=== PATIENT | male | born 1960 | race Caucasian/White ===

== ENCOUNTER 2017-02-12 14:44 | Inpatient (IN) | payer SELFPAY ==
--- NOTE | 2017-02-12 15:07 | EDPHY ---
H & P Stated Complaint: SOB, cough for 2 weeks, concerned about liver. Time Seen by Provider: 02/12/17 15:06 HPI/ROS: HPI: This is a 57-year-old male presents with Chief Complaint: SOB, cough for 2 weeks, concerned about liver. Location: Chest Quality: Cough Duration: 2 weeks Signs and Symptoms: Timing: Worsening Severity: Moderate Context: Patient reports that he drinks [place] daily and also has a clotting disorder in the family and he himself suffers from daily my nose bleeds. His significant other of 20+ years finally made him come to the emergency room today for further evaluation as her daughters felt like his skin was turning yellow in color any has this persistent cough with chest tightness for the last 2 weeks. He does report that he has not experienced chest tightness today. He describes it as " there" but denies any nausea, vomiting, diaphoresis, cardiac awareness, radiation. Reports that he has some red spots on the inside of his gums and gets daily nose bleeds. He attributed this to his family blood clotting disorder but has never seen a physician in 20+ years to have it evaluated. He denies fevers, abdominal pain, body aches, weight loss , blood in stool. Modifying Factors: None Comment: ROS: see HPI Constitutional: No fever, no chills, no weight loss Eyes: No blurred vision Respiratory: No shortness of breath, no cough Cardiovascular: No chest pain Gastrointestinal: No nausea, no vomiting, no diarrhea Genitourinary: No dysuria Extremities: No myalgias Neurologic: No weakness, no numbness Skin: No rashes Hematologic: No bruising, no bleeding MEDICAL/SURGICAL/SOCIAL HISTORY: Medical history: Does not take any regular medications. 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 CONSTITUTIONAL: Adult white male who is pleasant cooperative, nontoxic in appearance, awake and alert, no obvious distress HEENT: Atraumatic and normocephalic, PERRL, EOMI. pale conjunctiva. Tympanic membranes clear. Oropharynx clear, no exudate and moist pink mucosa with petechiae noted. Airway patent. No lymphadenopathy. No meningismus. Cardiovascular: Normal S1/S2, regular rate, regular rhythm, without murmur rub or gallop. PULMONARY/CHEST: Symmetrical and nontender. Clear to auscultation bilaterally. Good air movement. No accessory muscle usage. ABDOMEN: Soft, slightly protuberant, nondistended, nontender, no rebound, no guarding, no peritoneal signs, no masses or organomegaly. No CVAT. RECTAL: Good sphincter tone, light brown stool in vault, no external hemorrhoids , no fissures, no palpable masses EXTREMITIES: 2/2 pulses, strength 5/5, no deformities, no clubbing, no cyanosis or edema. NEUROLOGICAL: no focal neuro deficits. GCS 15. SKIN: Warm and dry, yellowish hue to skin, no erythema. no rash. Good capillary refill. Source: Patient Exam Limitations: No limitations - Personal History Current Tetanus Diphtheria and Acellular Pertussis (TDAP): Unsure - Medical/Surgical History Hx Asthma: No Hx Chronic Respiratory Disease: No Hx Diabetes: No Hx Cardiac Disease: No Hx Renal Disease: No Hx Cirrhosis: No Hx Alcoholism: No Hx HIV/AIDS: No Hx Splenectomy or Spleen Trauma: No Other PMH: Denies. - Social History Smoking Status: Never smoked Constitutional: Initial Vital Signs Temperature (C) 36.6 C 02/12/17 14:46 Heart Rate 96 02/12/17 14:46 Respiratory Rate 18 02/12/17 14:46 Blood Pressure 121/55 H 02/12/17 14:46 O2 Sat (%) 96 02/12/17 14:46 O2 Delivery Mode Room Air Allergies/Adverse Reactions: No Known Allergies Allergy (Unverified 02/12/17 14:50) Home Medications: Medication Instructions Recorded NK [No Known Home Meds] 02/12/17 Medical Decision Making - Diagnostics Imaging Results: Imaging Impressions Abdomen Ultrasound 02/12/17 15:27 Impression: 1. No acute findings in the abdomen. 2. Probable mild fatty infiltration of the liver. 3. Mild splenomegaly. Findings discussed with Geovanna Mak 02/12/2017 at 16:15. Chest X-Ray 02/12/17 15:27 Impression: No acute thoracic abnormality. Procedures: 12 lead EKG: Indication: Normal sinus rhythm rate of 80 beats per minute Rhythm: Normal sinus rhythm [place]: Normal Intervals: Normal QRS: Normal ST segments: nonspecific changes T-waves: nonspecific changes INTERPRETATION: PAC The 12 lead EKG was interpreted by myself and with attending. ED Course/Re-evaluation: 1600: Called by lab is hemoglobin and hematocrit of 4.8/20.1; microcytic type. Type and screen ordered. Transfuse 2 units packed red blood cells stat. VS shows HR 90s and O2 sats 96% on room air Guaiac positive Labs reviewed and show pancytopenia except platelets 498K Chest x-ray my read shows no pneumonia/pneumothorax. Called by radiologist Dr. Britton who advised that abdominal ultrasound shows cirrhosis. EKG and troponin #1; no acute ischemic changes noted. 1630: ED decision to consult for admission, due to microcytic anemia, liver disease, guaiac positive stool. Spoke with hospitalist, Dr. Jim Jurado, who kindly agrees to accept patient provide further care. Differential Diagnosis: Differential diagnosis includes but is not limited to liver disease, thrombocytopenia, community-acquired pneumonia, acute coronary syndrome, pulmonary embolism. - Data Points Laboratory Results: Laboratory Results 02/12/17 15:20 02/12/17 15:20 02/12/17 02/12/17 02/12/17 16:10 16:10 15:57 WBC RBC Hgb Hct MCV MCH MCHC RDW Plt Count MPV Neut % (Auto) Lymph % (Auto) [place] % (Auto) Eos % (Auto) Baso % (Auto) Nucleat RBC Rel Count Absolute Neuts (auto) Absolute Lymphs (auto) Absolute Monos (auto) Absolute Eos (auto) Absolute Basos (auto) Absolute Nucleated RBC Immature Gran % Immature Gran # Platelet Estimate Smear Review By PT INR APTT VBG Lactic Acid Sodium Potassium Chloride Carbon Dioxide Anion Gap BUN Creatinine Estimated GFR Glucose Calcium Total Bilirubin Conjugated Bilirubin Unconjugated Bilirubin AST ALT Alkaline Phosphatase Troponin I NT-Pro-B Natriuret Pep Total Protein Albumin Lipase Urine Color YELLOW Urine Appearance CLEAR Urine pH 5.0 (5.0-7.5) Ur Specific [place] 1.018 (1.002-1.030) Urine Protein NEGATIVE (NEGATIVE) Urine Ketones NEGATIVE (NEGATIVE) Urine Blood NEGATIVE (NEGATIVE) Urine Nitrate NEGATIVE (NEGATIVE) Urine Bilirubin NEGATIVE (NEGATIVE) Urine Urobilinogen NEGATIVE EU EU (0.2-1.0) Ur Leukocyte Esterase NEGATIVE (NEGATIVE) Urine Glucose NEGATIVE (NEGATIVE) Stool Occult Bld Scrn POSITIVE H (NEGATIVE) Patient ABO/Rh Pending Antibody Screen Pending Crossmatch IS Only See Detail 02/12/17 02/12/17 02/12/17 15:50 15:20 15:20 WBC RBC Hgb Hct MCV MCH MCHC RDW Plt Count MPV Neut % (Auto) Lymph % (Auto) [place] % (Auto) Eos % (Auto) Baso % (Auto) Nucleat RBC Rel Count Absolute Neuts (auto) Absolute Lymphs (auto) Absolute Monos (auto) Absolute Eos (auto) Absolute Basos (auto) Absolute Nucleated RBC Immature Gran % Immature Gran # Platelet Estimate Smear Review By PT INR APTT VBG Lactic Acid 1.5 mmol/L mmol/L (0.7-2.1) Sodium 140 mEq/L mEq/L (134-144) Potassium 4.3 mEq/L mEq/L (3.5-5.2) Chloride 107 mEq/L mEq/L (97-110) Carbon Dioxide 20 mEq/l L mEq/l (22-31) Anion Gap 13 mEq/L mEq/L (8-16) BUN 15 mg/dL mg/dL (7-23) Creatinine 0.9 mg/dL mg/dL (0.7-1.3) Estimated GFR > 60 Glucose 92 mg/dL mg/dL (70-100) Calcium 8.8 mg/dL mg/dL (8.5-10.4) Total Bilirubin 0.5 mg/dL mg/dL (0.1-1.4) Conjugated Bilirubin 0.0 mg/dL mg/dL (0.0-0.5) Unconjugated Bilirubin 0.5 mg/dL mg/dL (0.0-1.1) AST 35 IU/L IU/L (17-59) ALT 25 IU/L IU/L (21-72) Alkaline Phosphatase 71 IU/L IU/L (38-126) Troponin I < 0.012 ng/mL ng/mL (0.000-0.034) NT-Pro-B Natriuret Pep 847 pg/mL H pg/mL (0-125) Total Protein 6.3 g/dL g/dL (6.3-8.2) Albumin 3.7 g/dL g/dL (3.5-5.0) Lipase 62 IU/L IU/L (23-300) Urine Color Urine Appearance Urine pH Ur Specific [place] Urine Protein Urine Ketones Urine Blood Urine Nitrate Urine Bilirubin Urine Urobilinogen Ur Leukocyte Esterase Urine Glucose Stool Occult Bld Scrn Patient ABO/Rh Antibody Screen Crossmatch IS Only 02/12/17 02/12/17 15:20 15:20 WBC 5.58 10^3/uL 10^3/uL (3.80-9.50) RBC 3.59 10^6/uL L 10^6/uL (4.40-6.38) Hgb 4.8 g/dL L* g/dL (13.7-17.5) Hct 20.1 % L % (40.0-51.0) MCV 56.0 fL L fL (81.5-99.8) MCH 13.4 pg L pg (27.9-34.1) MCHC 23.9 g/dL L g/dL (32.4-36.7) RDW 22.6 % H % (11.5-15.2) Plt Count 498 10^3/uL H 10^3/uL (150-400) MPV 9.8 fL fL (8.7-11.7) Neut % (Auto) 60.7 % % (39.3-74.2) Lymph % (Auto) 24.2 % % (15.0-45.0) [place] % (Auto) 10.9 % % (4.5-13.0) Eos % (Auto) 2.9 % % (0.6-7.6) Baso % (Auto) 0.9 % % (0.3-1.7) Nucleat RBC Rel Count 1.1 % H % (0.0-0.2) Absolute Neuts (auto) 3.39 10^3/uL 10^3/uL (1.70-6.50) Absolute Lymphs (auto) 1.35 10^3/uL 10^3/uL (1.00-3.00) Absolute Monos (auto) 0.61 10^3/uL 10^3/uL (0.30-0.80) Absolute Eos (auto) 0.16 10^3/uL 10^3/uL (0.03-0.40) Absolute Basos (auto) 0.05 10^3/uL 10^3/uL (0.02-0.10) Absolute Nucleated RBC 0.06 10^3/uL H 10^3/uL (0-0.01) Immature Gran % 0.4 % % (0.0-1.1) Immature Gran # 0.02 10^3/uL 10^3/uL (0.00-0.10) Platelet Estimate Pending Smear Review By Pending PT 14.2 SEC SEC (12.0-15.0) INR 1.11 (0.83-1.16) APTT 32.5 SEC SEC (23.0-38.0) VBG Lactic Acid Sodium Potassium Chloride Carbon Dioxide Anion Gap BUN Creatinine Estimated GFR Glucose Calcium Total Bilirubin Conjugated Bilirubin Unconjugated Bilirubin AST ALT Alkaline Phosphatase Troponin I NT-Pro-B Natriuret Pep Total Protein Albumin Lipase Urine Color Urine Appearance Urine pH Ur Specific [place] Urine Protein Urine Ketones Urine Blood Urine Nitrate Urine Bilirubin Urine Urobilinogen Ur Leukocyte Esterase Urine Glucose Stool Occult Bld Scrn Patient ABO/Rh Antibody Screen Crossmatch IS Only Departure - Departure Disposition: [facility] Acute Clinical Impression: Microcytic anemia, Guaiac positive stools Cirrhosis Qualifiers: Hepatic cirrhosis type: alcoholic cirrhosis Ascites presence: without ascites Qualified Code(s): K70.30 - Alcoholic cirrhosis of liver without ascites
--- NOTE | 2017-02-12 15:28 | CPEKG ---
Heart Rate: 80 RR Interval: 750 P-R Interval: 152 QRSD Interval: 98 QT Interval: 380 QTC Interval: 439 P [place]: 50 QRS [place]: 17 T Wave [place]: 94 EKG Severity - ABNORMAL ECG - EKG Impression: SINUS RHYTHM EKG Impression: MULTIPLE ATRIAL PREMATURE COMPLEXES EKG Impression: BORDERLINE T ABNORMALITIES, LATERAL LEADS Electronically Signed By: Matthew Vasquez 12-Feb-2017 15:33:09
[2017-02-12 15:39] LABS: % IMMATURE GRANULYOCYTES 0.4 % (0.0-1.1); ABSOLUTE IMMATURE GRANULOCYTES 0.02 10^3/uL (0.00-0.10); ABSOLUTE NRBC COUNT 0.06 10^3/uL (0-0.01); ADD DIFF? NO; ADD MORPH? YES; ADD SCAN? NO; ATYPICAL LYMPHOCYTE FLAG 20 (0-99); FRAGMENT RBC FLAG 70 (0-99); HEMATOCRIT 20.1 % (40.0-51.0); LEFT SHIFT FLG 0 (0-99); LIPEMIA HEMOLYSIS FLAG 60 (0-99); MEAN CELL HEMOGLOBIN 13.4 pg (27.9-34.1); MEAN PLATELET VOLUME 9.8 fL (8.7-11.7); PLATELET CLUMPS FLAG 20 (0-99); PLATELET COUNT 498 10^3/uL (150-400); RED BLOOD CELL COUNT 3.59 10^6/uL (4.40-6.38)
[2017-02-12 15:42] LABS: MEAN CELL HEMOGLOBIN CONCENTR. 23.9 g/dL (32.4-36.7); NRBC-AUTO% 1.1 % (0.0-0.2); RED CELL DISTRIBUTION WIDTH 22.6 % (11.5-15.2)
[2017-02-12 15:47] LABS: ALANINE AMINOTRANSFERASE 25 IU/L (21-72); ALBUMIN 3.7 g/dL (3.5-5.0); ALKALINE PHOSPHATASE 71 IU/L (38-126); ANION GAP 13 mEq/L (8-16); ASPARTATE AMINOTRANSFERASE 35 IU/L (17-59); BILIRUBIN,TOTAL 0.5 mg/dL (0.1-1.4); BILIRUBIN-UNCONJUGATED 0.5 mg/dL (0.0-1.1); CALCIUM 8.8 mg/dL (8.5-10.4); CARBON DIOXIDE 20 mEq/l (22-31); CHLORIDE 107 mEq/L (97-110); CREATININE 0.9 mg/dL (0.7-1.3); GLOMERULAR FILTRATION RATE > 60; GLUCOSE 92 mg/dL (70-100); POTASSIUM 4.3 mEq/L (3.5-5.2); SODIUM 140 mEq/L (134-144); TOTAL PROTEIN 6.3 g/dL (6.3-8.2)
[2017-02-12 15:53] LABS: HEMOGLOBIN 4.8 g/dL (13.7-17.5)
[2017-02-12 16:00] LABS: APTT 32.5 SEC (23.0-38.0); INR 1.11 (0.83-1.16); PROTIME(PATIENT) 14.2 SEC (12.0-15.0)
[2017-02-12 16:20] LABS: COLOR YELLOW; LEUKOCYTE ESTERASE,URINE NEGATIVE (NEGATIVE); NITRITE,URINE NEGATIVE (NEGATIVE)
[2017-02-12 16:20] LABS: TROPONIN I < 0.012 ng/mL (0.000-0.034)
[2017-02-12 17:10] LABS: MICROCYTES 2+; POLYCHROMASIA 1+
[2017-02-12 17:11] LABS: ELLIPTOCYTES 1+; HYPOCHROMIA 2+; KERATOCYTES 1+; PLATELET ESTIMATE INCREASED (ADEQ)
[2017-02-12 17:31] LABS: % SATURATION 3 % (20-55); TOTAL IRON BINDING CAPACITY 439 ug/dL (260-490)
[2017-02-12] MEDS ORDERED: PEG 3350/NA SULF,BICARB,CL/KCL (GAVILYTE-G) 4000 ML BTL PO ONE ×2 (17:34→20:00)
[2017-02-12] MEDS ORDERED: ONDANSETRON DISINTEGRATING 4 MG TAB PO PRN (17:35)
[2017-02-12] MEDS ORDERED: ACETAMINOPHEN 325 MG TAB PO PRN (17:35)
[2017-02-12] MEDS ORDERED: ONDANSETRON 4 MG/2 ML VIAL IVP PRN (17:35)
[2017-02-12] MEDS ORDERED: NS 1,000 ML IV SCH (17:45)
[2017-02-12 17:58] LABS: FERRITIN - BCH 2.8 ng/mL (17.9-464.0)
--- NOTE | 2017-02-12 18:25 | GHP ---
[f rep st] HISTORY AND PHYSICAL DATE OF ADMISSION: 02/12/2017 The patient is a 57-year-old gentleman with minimal past medical history, who said he has not seen a doctor in like 20 years, who presents with shortness of breath. He notes he has frequent nosebleeds. Some of them are quite large. He has to stick Q-Tips up his nose to get them stop. He does not ta ke a lot of ibuprofen, Aleve, or Tylenol. He does not drink heavy alcohol or smoke cigarettes. He has noticed a little bit of swelling in his legs. 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 He has not had fever or chills. He has not had melena or bright red blood per rectum. He has not jameson d PND or orthopnea. He does have a genetic syndrome in his family that yields the pigmentation on his lips. No fever, ch ills. No nausea, vomiting, diarrhea. REVIEW OF SYSTEMS: Complete 10-point review of systems conducted negative except as noted in the HPI . PAST MEDICAL HISTORY: None. HOME MEDICATIONS: None. ALLERGIES: None. SOCIAL HISTORY: No tobacco now. Lifelong nonsmoker. Rare alcohol. FAMILY HISTORY: Not for a genetic syndrome of pigmentation of the lips. He is not clear that it is Peutzs-Jeghers, although I suspect it is. PHYSICAL EXAMINATION: PRESENTING VITAL SIGNS: Temperature 36.6, pulse 96, breathing 18 times a swapna te, 98% on room air. Blood pressure 121/55. GENERAL: No acute distress, pale. HEENT: Sclerae are anicteric. Oropharynx clear. Mucous membranes moist. In his oral mucosa, he has flat red macules. They not pigmented. They are many. They are 1-2 mm. NECK: Supple. No lymphadenopathy or JVD. LUNGS: Clear to auscultation bilaterally. HEART: S1, S2. ABDOMEN: Soft, nontender, nondistended. LOWER EXTREMITIES: Show trace edema bilaterally. Calves nontender. SKIN: Without rashes. Pale. LABS: White count 5.58, hemoglobin is 4.8, hematocrit is 20.1, MCV is 56, platelets are 498,000. IN R is 1. Venous lactate is 1.5. Sodium 140, potassium 4.3, chloride 107, bicarb 20, BUN 15, creatini ne 0.9, glucose is 92. Iron 14. Iron saturation is 3. TIBC is 439. LFTs normal. Troponin less th an 0.012. BNP is elevated at 847. Lipase is 62. UA is negative. Guaiac positive. Chest x-ray, interpreted by me, shows no acute cardiopulmonary disease. Abdominal ultrasound shows m ild fatty liver, otherwise unremarkable. EKG, interpreted by me, shows sinus at 80 with normal axis and intervals. No ST or T-wave changes. ASSESSMENT AND PLAN: This is a 57-year-old gentleman who presents with shortness of breath, almost c ertainly secondary to iron deficiency anemia. 1. Iron deficiency anemia. This is from chronic blood loss. It is not clear that the nosebleeds ac count for enough blood loss. Also, the possibility of Peutzs-Jeghers syndrome make endoscopy probabl y meaningful. I have spoke to Dr. White of Gastroenterology to perform upper and lower GI. I will make him n.p.o. past midnight and start a GoLYTELY prep. 2. Blood loss anemia. I think this is subacute in nature. He has received 2 units of red cells. I will order an additional 1 unit. He also will need some IV iron, I suppose. 3. Elevated BNP. I think this is probably some higher output heart failure. I think we can hold of f on echocardiogram. 4. Prophylaxis: Hold pharmacologic prophylaxis. 5. Nosebleeds. He is not actively having a nosebleed. If he does, we can certainly consider estrellita palomino ENT involved. I believe that is probably the most reasonable approach. 6. Prophylaxis. Hold on pharmacologic prophylaxis. DISPOSITION: Inpatient status. /[id number]/MODL
--- NOTE | 2017-02-12 18:48 | PDMN ---
Medical Necessity Medical necessity: C/M review: Patient meets INPT criteria under MCG M-35 Anemia, iron deficiency or unspecified; Acute iron deficiency anemia, acute blood loss anemia, Hgb 4.8, Hct 21.1, Iron 14.0, Iron saturation 3, ferritin 2.8 , elevated BNP 847, heme positive stool, shortness of breath, requiring planned GI consult, 02/13/2017 upper and lower GI endoscopy, 3 units PRBCs thus far, ongoing IV fluids, blood count lab monitoring, close monitoring, comorbid hx frequent nosebleeds. anticipates > 2 MN LOS for ongoing med nec for eval and TX of above.
[2017-02-13 04:50] LABS: % IMMATURE GRANULYOCYTES 1.3 % (0.0-1.1); ABSOLUTE IMMATURE GRANULOCYTES 0.08 10^3/uL (0.00-0.10); ABSOLUTE NRBC COUNT 0.13 10^3/uL (0-0.01); ADD DIFF? NO; ADD MORPH? YES; ADD SCAN? NO; ATYPICAL LYMPHOCYTE FLAG 0 (0-99); FRAGMENT RBC FLAG 80 (0-99); HEMATOCRIT 20.6 % (40.0-51.0); LEFT SHIFT FLG 0 (0-99); LIPEMIA HEMOLYSIS FLAG 70 (0-99); MEAN CELL HEMOGLOBIN 16.2 pg (27.9-34.1); MEAN PLATELET VOLUME 9.3 fL (8.7-11.7); PLATELET CLUMPS FLAG 0 (0-99); PLATELET COUNT 406 10^3/uL (150-400); RED BLOOD CELL COUNT 3.46 10^6/uL (4.40-6.38)
[2017-02-13 04:52] LABS: MEAN CELL HEMOGLOBIN CONCENTR. 27.2 g/dL (32.4-36.7); MEAN CELL VOLUME 59.5 fL (81.5-99.8); NRBC-AUTO% 2.1 % (0.0-0.2); RED CELL DISTRIBUTION WIDTH 26.9 % (11.5-15.2)
[2017-02-13 04:54] LABS: HEMOGLOBIN 5.6 g/dL (13.7-17.5)
[2017-02-13 05:11] LABS: ALANINE AMINOTRANSFERASE 29 IU/L (21-72); ALBUMIN 3.1 g/dL (3.5-5.0); ALKALINE PHOSPHATASE 63 IU/L (38-126); ANION GAP 10 mEq/L (8-16); ASPARTATE AMINOTRANSFERASE 25 IU/L (17-59); BILIRUBIN,TOTAL 2.8 mg/dL (0.1-1.4); CALCIUM 8.2 mg/dL (8.5-10.4); CARBON DIOXIDE 24 mEq/l (22-31); CHLORIDE 109 mEq/L (97-110); CREATININE 0.9 mg/dL (0.7-1.3); GLOMERULAR FILTRATION RATE > 60; GLUCOSE 91 mg/dL (70-100); POTASSIUM 4.2 mEq/L (3.5-5.2); SODIUM 143 mEq/L (134-144); TOTAL PROTEIN 5.5 g/dL (6.3-8.2)
[2017-02-13 05:19] LABS: MICROCYTES 3+; POLYCHROMASIA 1+
[2017-02-13 05:20] LABS: ELLIPTOCYTES 1+; HYPOCHROMIA 2+; PLATELET ESTIMATE INCREASED (ADEQ)
[2017-02-13 05:31] LABS: BILIRUBIN-CONJUGATED 0.1 mg/dL (0.0-0.5); BILIRUBIN-UNCONJUGATED 2.7 mg/dL (0.0-1.1)
[2017-02-13] MEDS ORDERED: NALOXONE HCL 0.4 MG/ML INJ ONE (08:23)
[2017-02-13] MEDS ORDERED: FLUMAZENIL 0.5 MG/5 ML MDV IVP ONE (08:23)
[2017-02-13] MEDS ORDERED: fentaNYL 100 MCG/2 ML INJ ONE (08:24)
[2017-02-13] MEDS ORDERED: MIDAZOLAM 2 MG/2 ML VIAL ONE (08:24)
[2017-02-13] MEDS ORDERED: EPINEPHrine 1 MG/10 ML SYR IVP ONE (08:24)
--- NOTE | 2017-02-13 08:44 | PDPROPOC ---
Sedation Plan of Care Sedation Plan of Care: vital signs stable, mental status noted, patient educated of risks, benefits, alternatives, patient can tolerate sedation ASA Classification: ASA 2 Planned drugs: fentanyl, midazolam Mallampati Score: Class 2 Mallampati Reference Image: Patient passed 3-3-2 rule?: Yes
[2017-02-13] MEDS ORDERED: PANTOPRAZOLE SODIUM 40 MG TAB PO SCH (09:00)
--- NOTE | 2017-02-13 09:01 | GCON ---
[f rep st] CONSULTATION REFERRING PHYSICIAN: Jim Jurado MD CHIEF COMPLAINT: Iron deficiency anemia. HISTORY OF PRESENT ILLNESS: This is a very pleasant 57-year-old gentleman who was referred to me in consultation by Dr. Jim Jurado for evaluation of iron deficiency anemia. He presented to the [facility] department feeling unwell, with some shortness of breath. He was having some chest discomfort . He has a history of frequent nosebleeds on a daily basis. He reports his nosebleeds can be quite large. He has not sought medical attention for his nosebleeds. He has not seen a physician in more than 20 years. He was noted to be anemic with hematocrit of 20.1, with an MCV of 56. His platelet c ount was 498. INR was 1. He had a normal white count of 5.58. The patient was admitted for further evaluation of profound anemia. Denies any nausea, vomiting. No heartburn or dysphagia. No difficu lty eating. He has noticed no change in bowel habits. No diarrhea or constipation is noticed, no bl ack stool or blood per rectum. FAMILY HISTORY: No family history of colon cancer or colon polyps. Family history is negative as it pertains to chief complaint, HPI. PAST MEDICAL HISTORY: Remarkable for history of recurrent epistaxis/nosebleeds. MEDICATIONS: None. ALLERGIES: None. SOCIAL HISTORY: He is a nonsmoker, had been a prior smoker. Drinks rare alcohol. REVIEW OF SYSTEMS: Negative for 10 systems, other than mentioned in HPI. PHYSICAL EXAM: VITAL SIGNS: He is afebrile at 36.6, pulse 96, respiratory rate 18, 98% saturation o n room air. Blood pressure 107/63, heart rate of 81. GENERAL: A very pleasant gentleman appearing somewhat pale, in no acute distress. HEENT: Normocephalic, atraumatic. EOMI. NECK: Supple. No cervical adenopathy. No thyromegaly. Mucous membranes moist. LUNGS: Clear. CARDIAC: Normal S1, S2 without murmur. ABDOMEN: Benign, s oft, nontender. No hepatosplenomegaly. EXTREMITIES: Without clubbing, cyanosis, edema. NEURO: No nfocal. SKIN: Warm, dry, intact. PSYCH: Alert and oriented x3 with normal affect. LABORATORY DATA: Hematocrit 20.6, MCV of 59.6. Serum chemistries: Serum sodium 143, potassium 4.2, chloride 109, CO2 24, BUN of 10, creatinine 0.9. IMPRESSION: 1. A 57-year-old male with chronic iron deficiency anemia. The patient does have a history of frequ ent epistaxis. No gastrointestinal symptoms. 2. Rule out chronic gastrointestinal source of bleeding, arteriovenous malformation, malignancy. RECOMMENDATIONS: Proceed with diagnostic endoscopy, colonoscopy. We will follow with you. Patient prep with 4 L of GoLYTELY, n.p.o., proceed with endoscopic evaluation. /[id number]/MODL
--- NOTE | 2017-02-13 12:12 | ASMTCASEMG ---
Living Arrangements What is your living Answers: Alone arrangement? Who do you live with? Type Of Residence What kind of residence do Answers: Apartment you live in? Discharge Plan Comments Coordination Status Comments Notes: Pt is a 57 y/o man admitted for anemia and guaiac positive stool. Pt will most likely discharge independent when medically stable. No therapies ordered at this time. CM available for d/c needs. Date Signed: 02/13/2017 12:12 PM Electronically Signed By:ANNE Farley
[2017-02-13 13:24] VITALS: BP 114/70; PULSE 87; RESP 18; TEMP 98.1; O2SAT 94
[2017-02-13 13:41] LABS: HEMATOCRIT 25.6 % (40.0-51.0); HEMOGLOBIN 7.6 g/dL (13.7-17.5)
--- NOTE | 2017-02-13 15:03 | GDS ---
[f rep st] DISCHARGE SUMMARY DISCHARGE DIAGNOSES: 1. Acute blood loss anemia. 2. Iron deficiency anemia. 3. Epistaxis, severe. HISTORY OF PRESENT ILLNESS: A 57-year-old male who presents to the emergency department with complai nts of shortness of breath. For details of patient's initial presentation, please see the history an d physical dated 02/12/2017. CONSULTATIVE SERVICES: Gastroenterology. PROCEDURES: On 02/13/2017 the patient underwent colonoscopy and EGD. HOSPITAL COURSE: By issue: 1. Iron deficiency anemia. The patient reported epistaxis. It has been severe and persistent for a very extended period of time, found to have a ferritin less than 3. There were great concerns that h micheline had GI losses leading to his iron deficiency. The patient was admitted, scoped looking for a gastr ointestinal source. Final reports of the EGD, colonoscopy are not available, but Dr. White did not see any identifiable source of blood loss in either the upper or lower scope. The patient is being discharged for ENT followup in the outpatient setting to address his ongoing epistaxis. 2. Anemia secondary to acute blood loss. The patient received 3 units of packed red blood cells dur ing his hospital stay. We have asked that he present for a blood check in the next 7-10 days to jonathan carvajal any ongoing needs for transfusion. The patient has also been asked to follow with Ear, Nose And Throat Surgery. Dr. House is the on-call this weekend and is located at [facility] wh ere he can undergo scoping and hopefully intervention related to his source of epistaxis. MEDICATIONS AT THE TIME OF DISPOSITION: Please reference the med rec printed on 02/13/2017. FOLLOWUP APPOINTMENTS: For this patient include: 1. With a PCP to be established for a blood check in the next 7-10 days. 2. With ENT for scoping and diagnostics related to his epistaxis. 3. With GI outpatient for ongoing monitoring and potential capsule endoscopy. I spent greater than 30 minutes in the planning and coordination of this discharge. /[id number]/MODL
--- NOTE | 2017-02-13 15:09 | ASDISCHSUM ---
Discharge Information Plan Status:Home with No Needs Medically Cleared to Leave:02/12/2017 Discharge Date:02/13/2017 02:42 PM D/C Disposition: ADT D/C Disposition:Home, Routine, Self-Care Projected Discharge Date:02/13/2017 12:00 AM Transportation at D/C: Discharge Delay Reason: Follow-Up Date:02/13/2017 12:00 AM Discharge Slot: Final Diagnosis: Placement Information Patient Contact Information Contact Name:PEG Relationship:Other Address: Work Phone: City: [facility] Phone: [email or web address] Code: Email: Financial Information Financial Class:Self-Pay Primary Plan Desc:SELF PAY Primary Plan Number: Secondary Plan Desc: Secondary Plan Number: Assessment Information [facility] Initial CM Assessment Living Arrangements What is your living Answers: Alone arrangement? Who do you live with? Type Of Residence What kind of residence do Answers: Apartment you live in? Discharge Plan Comments Coordination Status Comments Notes: Pt is a 57 y/o man admitted for anemia and guaiac positive stool. Pt will most likely discharge independent when medically stable. No therapies ordered at this time. CM available for d/c needs. Date Signed: 02/13/2017 12:12 PM Electronically Signed By:ANNE Farley Intervention Information
== END 2017-02-13 14:42 | disposition home or self-care (01) | DRG 812 ==
LOC: F3E 17:38
PROVIDERS: ADMIT Internal Medicine; ATTEND Internal Medicine
PROC: 30243N1 Transfusion of Nonautologous Red Blood Cells into Central Vein, Percutaneous Approach (ICD-10-PCS; principal; 2017-02-12)
PROC: 0DB78ZX Excision of Stomach, Pylorus, Via Natural or Artificial Opening Endoscopic, Diagnostic (ICD-10-PCS; 2017-02-12)
PROC: 0DB98ZX Excision of Duodenum, Via Natural or Artificial Opening Endoscopic, Diagnostic (ICD-10-PCS; 2017-02-12)
PROC: 0DBN8ZX Excision of Sigmoid Colon, Via Natural or Artificial Opening Endoscopic, Diagnostic (ICD-10-PCS; 2017-02-12)
DX: D62 Acute posthemorrhagic anemia (principal); D50.9 Iron deficiency anemia, unspecified; D12.5 Benign neoplasm of sigmoid colon; K92.1 Melena
CPT/HCPCS: J2250; J2310; J3010; P9016; P9040